=== PATIENT | female | born 1945 | race Caucasian/White ===

== ENCOUNTER 2018-08-07 17:38 | Emergency (ER) | payer MEDICARE, OTHER | END 2018-08-07 22:56 | disposition home or self-care (01) | LOC: E/R 17:38 | DX: S13.4XXA Sprain of ligaments of cervical spine, initial encounter (principal); S43.402A Unspecified sprain of left shoulder joint, initial encounter; V49.40XA Driver injured in collision with unspecified motor vehicles in traffic accident, initial encounter; Z85.850 Personal history of malignant neoplasm of thyroid | CPT/HCPCS: 71045; 72050; 73060; 99284-25 ==